=== PATIENT | female | born 1985 | race Caucasian/White ===

== ENCOUNTER 2017-06-21 16:00 | Emergency (ER) | payer OTHER ==
[~2017-06-21] VITALS: Ht 160 cm; Wt 95.6 kg
[~2017-06-21 16:00] MED LIST: LORA-741 PO; MTR800 PO; SERT50TA PO
[2017-06-21 16:14] VITALS: TEMP 37; Ht 160 cm; Wt 95.6 kg
--- NOTE | 2017-06-21 18:23 | DIAGNOSTIC IMAGING REPORT ---
CT OF THE ABDOMEN AND PELVIS WITHOUT CONTRAST, STONE PROTOCOL CLINICAL HISTORY: Right sided abdominal pain. COMPARISON STUDY: CT of the abdomen and pelvis September 11, 2011. TECHNIQUE: Helical axial images of the abdomen and pelvis were obtained without IV or oral contrast according to renal stone protocol. A dose lowering technique was utilized adhering to the principles of ALARA. FINDINGS: Lung bases are clear. No renal, ureteral or bladder calculi are present. There is no hydronephrosis. There is no biliary ductal dilatation status post cholecystectomy. Evaluation of the remainder of the abdomen and pelvis is suboptimal on this unenhanced exam. The liver, spleen, adrenal glands and pancreas are normal. There is no evidence for a bowel obstruction. The appendix is normal. There is no free fluid. No pneumatosis, free air or portal venous gas is present. A tampon is in place. There are no suspicious osseous lesions. Prominent left inguinal lymph nodes are unchanged. IMPRESSION: 1. No urinary calculi or hydronephrosis. 2. No acute process within the abdomen or pelvis on unenhanced exam. Normal appendix. Electronically signed by: Ivan Coe M.D. 06/21/2017 6:22 PM Dictated Date/Time: 06/21/2017 6:16 PM
[2017-06-21] MEDS ORDERED: IBUP-1050 PO (18:29)
[2017-06-21] MEDS ORDERED: ACET-1256 PO (18:30)
[2017-06-21] MEDS ORDERED: OXYC-57 PO (18:30)
[2017-06-21 18:43] LABS: ALT/SGPT 23 U/L (12-78); AST/SGOT 9 U/L (15-37); BLOOD UREA NITROGEN 14 mg/dl (7-18); BUN/CREATININE RATIO 23.3 (10-20); CALCIUM 8.8 mg/dl (8.5-10.1); CARBON DIOXIDE 30 mmol/L (21-32); CHLORIDE 104 mmol/L (98-107); CREATININE 0.61 mg/dl (0.60-1.20); GLUCOSE 86 mg/dl (70-99); POTASSIUM 3.4 mmol/L (3.5-5.1); SODIUM 139 mmol/L (136-145)
[2017-06-21 18:46] LABS: ALKALINE PHOSPHATASE 74 U/L (45-117)
[2017-06-21 18:51] LABS: URINE APPEARANCE CLEAR (CLEAR); URINE BILIRUBIN NEG (NEG); URINE COLOR DK YELLOW; URINE NITRITE NEG (NEG); URINE PH 5.5 (4.5-7.5); URINE SPECIFIC GRAVITY 1.034 (1.000-1.030); UROBILINOGEN NEG (NEG)
[2017-06-21 18:55] LABS: MANUAL MICROSCOPIC REQUIRED? NO; REVIEW REQ? YES
[2017-06-21 18:56] LABS: BASO % 0.3 %; BASO ABS # 0.03 K/uL (0-0.2); COMPLETE YES; EOS % 2.1 %; HEMATOCRIT 36.6 % (37-47); IG% 0.5 %; LYMPH % 19.5 %; LYMPH ABS # 2.21 K/uL (1.2-3.4); MEAN CORPUSCULAR HEMOGLOBIN 26.5 pg (25-34); MEAN PLATELET VOLUME 8.9 fL (7.4-10.4); MONO % 7.3 %; NEUT % 70.3 %; PLATELET COUNT 395 K/uL (130-400); RED BLOOD COUNT 4.41 M/uL (4.2-5.4); WHITE BLOOD COUNT 11.34 K/uL (4.8-10.8)
[2017-06-21 19:07] LABS: URINE MUCUS PRESENT (NONE PRSENT)
[2017-06-21] MEDS ORDERED: KETOROLAC TROMETHAMINE 30 MG/ML VIAL IV STA (19:16)
--- NOTE | 2017-06-21 19:51 | DIAGNOSTIC IMAGING REPORT ---
R RIBS UNILATERAL WITH PA CHEST CLINICAL HISTORY: Right lateral rib pain. COMPARISON STUDY: Chest radiograph July 06, 2009. FINDINGS: There is no pneumothorax or pleural effusion. The lungs are clear. Pulmonary vascularity is normal. Cardiomediastinal silhouette is normal. No acute right rib fractures are identified. There are cholecystectomy clips. IMPRESSION: No pneumothorax. No acute right rib fractures. Electronically signed by: Ivan Coe M.D. 06/21/2017 7:50 PM Dictated Date/Time: 06/21/2017 7:46 PM
[2017-06-21 20:50] VITALS: BP 107/70; PULSE 80; O2SAT 99
--- NOTE | 2017-06-21 22:39 | EMERGENCY ROOM VISIT NOTE ---
History Report prepared by Reta: Rachel Johnston Under the Supervision of: Dr. Blake Arreola M.D. First contact with patient: 17:33 Chief Complaint: ABDOMINAL PAIN Stated Complaint: PAIN IN RIGHT ABDOMEN Nursing Triage Summary: Right sided abd pain, nausea. Has been going on for a few weeks, worse today. History of Present Illness The patient is a 32 year old female who presents to the Emergency Room with complaints of constant sharp right sided abdominal pain beginning 3-4 weeks ago. The patient notes that the pain sometimes radiates to her back. She denies any fever, vomiting, difficulty urinating, blood in urine, or abnormal vaginal discharge. She notes some changes in her stool but denies any blood in her stool. She said her stool was small in caliber. The patient states that when her pain gets sharp she has difficulty breathing but otherwise denies shortness of breath. She notes some leg swelling which is baseline for her dues to her history of knee surgeries. The patient presently has her period and she reports it is 10 days late. She has a history of a cholecystectomy. Source of History: patient Onset: 3-4 weeks ago Position: abdomen Quality: sharp Timing: constant Associated Symptoms: + back pain, No fevers, No vomiting, No urinary symptoms Review of Systems See HPI for pertinent positives & negatives. A total of 10 systems reviewed and were otherwise negative. Past Medical & Surgical Medical Problems: (1) PUERPERAL ENDOMETRITIS CONDITION OR COMPLICATION Surgical Problems: (1) History of delivery (2) History of sinus surgery (3) History of tubal ligation Family History no pertinent family history stated Social History Smoking Status: Former Smoker Alcohol Use: none Drug Use: none Marital Status: Housing Status: lives with family Occupation Status: employed Current/Historical Medications Scheduled Sertraline (Zoloft), 50 MG PO HS Scheduled PRN Acetaminophen (Tylenol), 1,000 MG PO Q6 PRN for Pain Ibuprofen (Advil), 400 MG PO Q6 PRN for Pain Lorazepam (Ativan), 0.5 MG PO for Anxiety Oxycodone/Acetaminophen 5MG/325MG (Percocet 5MG/325MG), 1-2 TABLETS PO Q4H PRN for Pain Allergies Coded Allergies: Fish Allergy (Verified Allergy, Unknown, "SEAFOOD" = RASH, 11/12/12) SHELLFISH (Verified Allergy, Unknown, "SEAFOOD" = RASH, 11/12/12) Physical Exam Vital Signs Date Time Temp Pulse Resp B/P (MAP) Pulse Ox O2 Delivery O2 Flow Rate FiO2 06/21/17 20:50 80 16 107/70 99 06/21/17 20:05 75 16 114/68 98 Room Air 06/21/17 19:05 73 16 118/74 100 Room Air 06/21/17 17:53 81 16 112/79 99 Room Air 06/21/17 16:14 37.0 104 18 132/85 97 Room Air Physical Exam Constitutional: Vital signs reviewed. Eyes: Pupils are equal round reactive to light. Conjunctiva are noninjected. ENT: Pharynx is clear without erythema or exudate. Mucous membranes are moist. Neck supple without meningeal signs. Respiratory: Clear to auscultation bilaterally. Breath sounds are equal bilaterally. Cardiovascular: Regular rate and rhythm. No rubs or gallops. GI: Soft and nondistended. Right upper and lower abdominal tenderness, no guarding. Bowel sounds are present. Musculoskeletal: No peripheral edema. No lower extremity tenderness. Right CVA tenderness, although the patient does have diffuse tenderness to her right lower ribs. Integumentary: No cyanosis. Neurological: The patient is awake and alert. No focal deficits. Psychiatric: Normal affect. Medical Decision & Procedures ER Provider Diagnostic Interpretation: Radiology results as stated below per my review and the radiologist's interpretation: CT OF THE ABDOMEN AND PELVIS WITHOUT CONTRAST, STONE PROTOCOL FINDINGS: Lung bases are clear. No renal, ureteral or bladder calculi are present. There is no hydronephrosis. There is no biliary ductal dilatation status post cholecystectomy. Evaluation of the remainder of the abdomen and pelvis is suboptimal on this unenhanced exam. The liver, spleen, adrenal glands and pancreas are normal. There is no evidence for a bowel obstruction. The appendix is normal. There is no free fluid. No pneumatosis, free air or portal venous gas is present. A tampon is in place. There are no suspicious osseous lesions. Prominent left inguinal lymph nodes are unchanged. IMPRESSION: 1. No urinary calculi or hydronephrosis. 2. No acute process within the abdomen or pelvis on unenhanced exam. Normal appendix. Electronically signed by: Lorraine Ozuna RIBS UNILATERAL WITH PA CHEST FINDINGS: There is no pneumothorax or pleural effusion. The lungs are clear. Pulmonary vascularity is normal. Cardiomediastinal silhouette is normal. No acute right rib fractures are identified. There are cholecystectomy clips. IMPRESSION: No pneumothorax. No acute right rib fractures. Electronically signed by: Ivan Coe M.D. Laboratory Results 06/21/17 17:45 Red Blood Count 4.41, Mean Corpuscular Volume 83.0, Mean Corpuscular Hemoglobin 26.5, Mean Corpuscular Hemoglobin Concent 32.0, Mean Platelet Volume 8.9, Neutrophils (%) (Auto) 70.3, Lymphocytes (%) (Auto) 19.5, Monocytes (%) (Auto) 7.3, Eosinophils (%) (Auto) 2.1, Basophils (%) (Auto) 0.3, Neutrophils # (Auto) 7.97, Lymphocytes # (Auto) 2.21, Monocytes # (Auto) 0.83, Eosinophils # (Auto) 0.24, Basophils # (Auto) 0.03 06/21/17 17:45 Test 06/21/17 17:45 White Blood Count 11.34 K/uL (4.8-10.8) Red Blood Count 4.41 M/uL (4.2-5.4) Hemoglobin 11.7 g/dL (12.0-16.0) Hematocrit 36.6 % (37-47) Mean Corpuscular Volume 83.0 fL (80-100) Mean Corpuscular Hemoglobin 26.5 pg (25-34) Mean Corpuscular Hemoglobin Concent 32.0 g/dl (32-36) Platelet Count 395 K/uL (130-400) Mean Platelet Volume 8.9 fL (7.4-10.4) Neutrophils (%) (Auto) 70.3 % Lymphocytes (%) (Auto) 19.5 % Monocytes (%) (Auto) 7.3 % Eosinophils (%) (Auto) 2.1 % Basophils (%) (Auto) 0.3 % Neutrophils # (Auto) 7.97 K/uL (1.4-6.5) Lymphocytes # (Auto) 2.21 K/uL (1.2-3.4) Monocytes # (Auto) 0.83 K/uL (0.11-0.59) Eosinophils # (Auto) 0.24 K/uL (0-0.5) Basophils # (Auto) 0.03 K/uL (0-0.2) RDW Standard Deviation 43.1 fL (36.4-46.3) RDW Coefficient of Variation 14.3 % (11.5-14.5) Immature Granulocyte % (Auto) 0.5 % Immature Granulocyte # (Auto) 0.06 K/uL (0.00-0.02) D-Dimer 330 ug/L FEU (0-500) Urine Color DK YELLOW Urine Appearance CLEAR (CLEAR) Urine pH 5.5 (4.5-7.5) Urine Specific [place] 1.034 (1.000-1.030) Urine Protein NEG (NEG) Urine Glucose (UA) NEG (NEG) Urine Ketones NEG (NEG) Urine Occult Blood TRACE (NEG) Urine Nitrite NEG (NEG) Urine Bilirubin NEG (NEG) Urine Urobilinogen NEG (NEG) Urine Leukocyte Esterase NEG (NEG) Urine WBC (Auto) 1-5 /hpf (0-5) Urine RBC (Auto) 0-4 /hpf (0-4) Urine Hyaline Casts (Auto) 1-5 /lpf (0-5) Urine Epithelial Cells (Auto) 10-20 /lpf (0-5) Urine Bacteria (Auto) NEG (NEG) Urine Crystals CALCIUM OXALATE (NONE Urine Mucus PRESENT (NONE PRSENT) Urine Test NEG (NEG) Anion Gap 5.0 mmol/L (3-11) Est Creatinine Clear Calc Drug Dose 144.3 ml/min Estimated GFR () 138.1 Estimated GFR (Non- 119.1 BUN/Creatinine Ratio 23.3 (10-20) Calcium Level 8.8 mg/dl (8.5-10.1) Total Bilirubin 0.2 mg/dl (0.2-1) Direct Bilirubin < 0.1 mg/dl (0-0.2) Aspartate Amino Transf (AST/SGOT) 9 U/L (15-37) Alanine Aminotransferase (ALT/SGPT) 23 U/L (12-78) Alkaline Phosphatase 74 U/L (45-117) Total Protein 8.1 gm/dl (6.4-8.2) Albumin 4.0 gm/dl (3.4-5.0) Lipase 89 U/L (73-393) Laboratory results as reviewed by me. Medications Administered Medications (Trade) Dose Ordered Sig/Mehreen Route Start Time Stop Time Status Last Admin Dose Admin Ketorolac Tromethamine (Toradol Inj) 30 mg NOW STAT IV 06/21/17 19:16 06/21/17 19:17 DC 06/21/17 19:25 30 MG ED Course 1734: The patient was evaluated in room A4B. A complete history and physical exam was performed. 1912: I discussed the patient's test results with her. On reamination, the patient has significant tenderness of right lower ribs. 1915: Toradol Inj 30 mg IV. 2029: I discussed the patient's test results with her. She has slight improvement of pain with the Toradol. 2044: Upon reevaluation, the patient appeared to have improvement of her symptoms. I discussed tonight's findings with the patient. She verbalized agreement of the treatment plan. The patient was discharged home. Medical Decision This is a 32-year-old female presents with right-sided abdominal and flank pain. Differential diagnosis includes kidney stone, pleurisy, UTI, pyelonephritis, pancreatitis, appendicitis. I did perform a limited focused review of portions of the patient's old chart on the electronic medical record. The patient has had no recent pertinent visits to this hospital. I did evaluate the patient as noted above. Patient is presenting with right sided flank pain. On examination, however, she does have tenderness in both the right upper abdomen as well as the right lower abdomen. She also has CVA tenderness but she does have diffuse tenderness to her right lower ribs and so I 'm not convinced that this is from a urinary tract infection or pyelonephritis. She denies any chest pain or shortness of breath to suggest pulmonary embolism. IV access was established. I did treat patient with Toradol IV. I did order and personally review the patient's rib and chest x-ray as described above. There is no evidence of acute pathology. Urine analysis did not show signs of infection although there is evidence of calcium oxylate crystals and blood. A urine culture was sent. I did order and review the patient's blood work as noted in the electronic medical record. Her white blood cell count is slightly elevated. D-dimer is negative. I did order a CT of the abdomen and pelvis. I did review the images myself as well as the radiology report as described above. There is no evidence of acute pathology. I did discuss the test results with the patient. At this time the cause of her symptoms is unclear and so I did recommend close follow up with her physician for further evaluation. I did review return instructions with her and she was discharged in good condition. Medication Reconcilliation Current Medication List: was personally reviewed by me Blood Pressure Screening Patient's blood pressure: Elevated blood pressure Blood pressure disposition: Referred to PCP Impression Primary Impression: Right flank pain Additional Impression: Right sided abdominal pain Scribe Attestation The scribe's documentation has been prepared under my direct and personally reviewed by me in its entirety. I confirm that the note above accurately reflects all work, treatment, procedures, and medical decision making performed by me. Departure Information Dispostion Home / Self-Care Referrals No Doctor, Assigned (PCP) Forms Call Back Authorization, HOME CARE DOCUMENTATION FORM, IMPORTANT VISIT INFORMATION Patient Instructions ED Abdominal Pain Unkn Cause, ED Flank Pain Uncertain Cause, My [facility] Additional Instructions You have been examined and treated today on an emergency basis only. This is not a substitute for, or an effort to provide, complete comprehensive medical care. It is impossible to recognize and treat all injuries or illnesses in a single emergency department visit. It is therefore important that you follow up closely with your physician. Call as soon as possible for an appointment. Return for worsening symptoms or if you develop fever, vomiting, chest pain, trouble breathing or any other concerning symptoms. Problem Qualifiers
== END 2017-06-21 20:51 | disposition home or self-care (01) ==
LOC: C.EDB 16:01 → C.EDA 20:51
DX: R10.31 Right lower quadrant pain (principal); R10.11 Right upper quadrant pain; Z98.51 Tubal ligation status; Z87.891 Personal history of nicotine dependence

== ENCOUNTER → 2017-11-25 | Outpatient (CLI) | payer OTHER ==
[~2017-11-25] MED LIST changes: +ACET-1256 PO; +IBUP-1050 PO; -MTR800 PO; +OXYC-57 PO; +OXYC1TAB3 PO
[2017-11-25 17:31] LABS: BASO % 0.3 %; BASO ABS # 0.03 K/uL (0-0.2); EOS % 1.2 %; EOS ABS # 0.12 K/uL (0-0.5); HEMATOCRIT 36.5 % (37-47); HEMOGLOBIN 11.7 g/dL (12.0-16.0); IG# 0.03 K/uL (0.00-0.02); LYMPH % 19.9 %; LYMPH ABS # 2.06 K/uL (1.2-3.4); MEAN CELL VOLUME 83.1 fL (80-100); MEAN CORPUSCULAR HEMOGLOBIN 26.7 pg (25-34); MEAN CORPUSCULAR HGB CONC 32.1 g/dl (32-36); MEAN PLATELET VOLUME 9.1 fL (7.4-10.4); MONO % 4.9 %; MONO ABS # 0.51 K/uL (0.11-0.59); NEUT % 73.4 %; NEUT ABS # 7.61 K/uL (1.4-6.5); PLATELET COUNT 358 K/uL (130-400); RED CELL DISTRIBUTION WIDTH CV 14.9 % (11.5-14.5); RED CELL DISTRIBUTION WIDTH SD 45.6 fL (36.4-46.3); WHITE BLOOD COUNT 10.36 K/uL (4.8-10.8)
== END | disposition home or self-care (01) ==
LOC: C.LAB1850 16:42
PROVIDERS: ATTEND Obstetrics & Gynecology
DX: N92.6 Irregular menstruation, unspecified (principal)

== ENCOUNTER → 2017-11-25 | Outpatient (CLI) | payer OTHER | END | disposition home or self-care (01) | LOC: C.PAPS 18:21 | PROVIDERS: ATTEND Obstetrics & Gynecology | DX: Z01.419 Encounter for gynecological examination (general) (routine) without abnormal findings (principal) ==

== ENCOUNTER 2017-11-27 18:45 | Emergency (ER) | payer OTHER ==
[~2017-11-27 18:45] MED LIST changes: -OXYC1TAB3 PO
[2017-11-27] MEDS ORDERED: KETOROLAC TROMETHAMINE 30 MG/ML VIAL ONE (20:27)
[2017-11-27] MEDS ORDERED: ONDANSETRON HOME PACK 4MG OD TAB PO ONE (22:45)
[2017-11-27] MEDS ORDERED: OXYCODONE IR HOME PACK PO ONE (22:45)
[2017-11-27 22:59] LABS: BLOOD UREA NITROGEN 15 mg/dl (7-18); CREATININE 0.55 mg/dl (0.60-1.20); GLUCOSE 79 mg/dl (70-99); HEMATOCRIT 34.4 % (37-47); HEMOGLOBIN 11.3 g/dL (12.0-16.0); MEAN CELL VOLUME 81.9 fL (80-100); MEAN CORPUSCULAR HEMOGLOBIN 26.9 pg (25-34); MEAN CORPUSCULAR HGB CONC 32.8 g/dl (32-36); MEAN PLATELET VOLUME 8.8 fL (7.4-10.4); PLATELET COUNT 328 K/uL (130-400); RED CELL DISTRIBUTION WIDTH CV 15.2 % (11.5-14.5); RED CELL DISTRIBUTION WIDTH SD 45.6 fL (36.4-46.3); WHITE BLOOD COUNT 10.16 K/uL (4.8-10.8)
[2017-11-27 23:00] LABS: CALCIUM 9.1 mg/dl (8.5-10.1); CARBON DIOXIDE 27 mmol/L (21-32); POTASSIUM 3.7 mmol/L (3.5-5.1); SODIUM 138 mmol/L (136-145)
[2017-11-27 23:01] VITALS: BP 116/71; PULSE 79; O2SAT 96
[2017-11-27 23:04] LABS: INR 0.9 (0.9-1.1); PTT PATIENT 26.4 SECONDS (21.0-31.0)
--- NOTE | 2017-11-27 23:08 | EMERGENCY ROOM VISIT NOTE ---
History Report prepared by Reta: Eddie Benedict Under the Supervision of: Dr. Santo Rosado D.O. Chief Complaint: ED VAG BLEEDING Stated Complaint: R LOWER PELVIC PAIN AND BLEEDING History of Present Illness The patient is a year 32 old female who presents to the Emergency Room with complaints persistent vaginal bleeding since this afternoon. She notes cramping for one week. Her LNMP was September 21, 2017. She has a history of tubal ligation. She denies any chance of . She has a history of two pregnancies. She notes that she was lifting heavy boxes at work when she began bleeding vaginally. She notes the more boxes she lifted, the more she bled. She notes that she is bleeding mildly. She is not currently taking any form of control. She notes that she has been seeing her OBGYN and was seen yesterday. She had a transvaginal US, though she has not been given the results. She has been taking Ibuprofen. She last took Ibuprofen at 1400 today. She takes daily vitamins and Zolft. She has a history of cholecystectomy. She is a current smoker. Source of History: patient Onset: since this afternoon Position: other (vaginal) Quality: other (bleeding) Timing: other (persistent) Review of Systems See HPI for pertinent positives & negatives. A total of 10 systems reviewed and were otherwise negative. Past Medical & Surgical Medical Problems: (1) PUERPERAL ENDOMETRITIS CONDITION OR COMPLICATION Surgical Problems: (1) History of delivery (2) History of sinus surgery (3) History of tubal ligation Family History Heart disease Social History Smoking Status: Former Smoker Alcohol Use: none Drug Use: none Marital Status: Housing Status: lives with family Occupation Status: employed Current/Historical Medications Scheduled Sertraline (Zoloft), 50 MG PO HS Scheduled PRN Acetaminophen (Tylenol), 1,000 MG PO Q6 PRN for Pain Ibuprofen (Advil), 400 MG PO Q6 PRN for Pain Lorazepam (Ativan), 0.5 MG PO for Anxiety Oxycodone/Acetaminophen 5MG/325MG (Percocet 5MG/325MG), 1-2 TABLETS PO Q4H PRN for Pain Allergies Coded Allergies: Fish Allergy (Verified Allergy, Unknown, "SEAFOOD" = RASH, 11/12/12) SHELLFISH (Verified Allergy, Unknown, "SEAFOOD" = RASH, 11/12/12) Physical Exam Vital Signs Date Time Temp Pulse Resp B/P (MAP) Pulse Ox O2 Delivery O2 Flow Rate FiO2 11/27/17 23:01 79 16 116/71 96 Physical Exam GENERAL: Patient is awake, alert, and in no acute distress. Patient is resting comfortably and showing no signs of anxiety EYES: The conjunctivae are clear. The pupils are round and reactive. EARS, NOSE, MOUTH AND THROAT: The nose is without any evidence of any deformity. Mucous membranes are moist tongue is midline NECK: The neck is nontender and supple. RESPIRATORY: Normal respiratory effort is noted there is no evidence of wheezing rhonchi or rales CARDIOVASCULAR: Regular rate and rhythm noted there no murmurs rubs or gallops normal S1 normal S2 GASTROINTESTINAL: Mildly distended with suprapubic and right suprapubic tenderness to palpation, no guarding or rigidity. MUSCULOSKELETAL/EXTREMITIES: There is no evidence of gross deformity full range of motion is noted in the hips and shoulders SKIN: There is no obvious evidence of any rash. There are no petechiae, pallor or cyanosis noted. NEUROLOGIC: Patient is awake alert and oriented x3. Medical Decision & Procedures ER Provider Diagnostic Interpretation: Radiology results as stated below per my review and interpretation: Transvaginal US: Right ovarian hemorrhagic cyst. No free fluid. PELVIC COMPLETE NON OB CLINICAL HISTORY: RLQ PAIN PAIN COMPARISON STUDY: 12/10/2010 FINDINGS: The uterus measured 10 cm. The endometrial stripe measured 7 mm. The right ovary measured 3.7 cm maximum dimension with normal vascular flow. 3 cm complex and/or hemorrhagic cyst.. The left ovary measured 3.6 cm maximum dimension with normal vascular flow. There is no ultrasonographic evidence of ovarian torsion. It should be noted that ovarian torsion can be present with normal Doppler ultrasonographic findings. There was no evidence of pathologic free pelvic fluid. IMPRESSION: 3.1 cm complex and/or hemorrhagic cyst right ovary. The above report was generated using voice recognition software. It may contain grammatical, syntax or spelling errors. Electronically signed by: Aaron Yao M.D. 11/28/2017 6:55 AM Laboratory Results 11/27/17 00:00 11/27/17 00:00 Test 11/27/17 00:00 Red Blood Count 4.20 M/uL (4.2-5.4) Mean Corpuscular Volume 81.9 fL (80-100) Mean Corpuscular Hemoglobin 26.9 pg (25-34) Mean Corpuscular Hemoglobin Concent 32.8 g/dl (32-36) RDW Standard Deviation 45.6 fL (36.4-46.3) RDW Coefficient of Variation 15.2 % (11.5-14.5) Mean Platelet Volume 8.8 fL (7.4-10.4) Prothrombin Time 9.7 SECONDS (9.0-12.0) Prothromb Time International Ratio 0.9 (0.9-1.1) Activated Partial Thromboplast Time 26.4 SECONDS (21.0-31.0) Partial Thromboplastin Ratio 1.0 Urine Color YELLOW Urine Appearance CLEAR (CLEAR) Urine pH 5.5 (4.5-7.5) Urine Specific [place] 1.033 (1.000-1.030) Urine Protein NEG (NEG) Urine Glucose (UA) NEG (NEG) Urine Ketones TRACE (NEG) Urine Occult Blood TRACE (NEG) Urine Nitrite NEG (NEG) Urine Bilirubin NEG (NEG) Urine Urobilinogen NEG (NEG) Urine Leukocyte Esterase NEG (NEG) Urine WBC (Auto) 0 /hpf (0-5) Urine RBC (Auto) 0-4 /hpf (0-4) Urine Hyaline Casts (Auto) 1-5 /lpf (0-5) Urine Epithelial Cells (Auto) 10-20 /lpf (0-5) Urine Bacteria (Auto) NEG (NEG) Anion Gap 6.0 mmol/L (3-11) Estimated GFR () 142.8 Estimated GFR (Non- 123.2 BUN/Creatinine Ratio 27.2 (10-20) Calcium Level 9.1 mg/dl (8.5-10.1) Human Chorionic Gonadotropin, Qual NEG (NEG) Laboratory results per my review. Medications Administered Medications (Trade) Dose Ordered Sig/Mehreen Route Start Time Stop Time Status Last Admin Dose Admin Ondansetron HCl (ZOFRAN ODT 4MG Home Pack) 1 homepack UD ONCE PO 11/27/17 22:45 11/27/17 22:46 DC 11/27/17 22:55 1 HOMEPACK Oxycodone HCl (Roxicodone Immediate Rel 5MG Home Pack) 1 homepack UD ONCE PO 11/27/17 22:45 11/27/17 22:46 DC 11/27/17 22:55 1 [facility] ED Course 1939: The patient was evaluated in room B10. A complete history and physical examination were performed. 2224: I spoke with RICARDO Bolivar. We discussed the patients case. The office will follow up with the patient. 2229: I reassessed the patient at this time. She is feeling better and resting comfortably. I discussed the results and treatment plan with the patient. I answered all pertaining questions that she had. She expressed understanding and verbalized agreement. The patient will be discharged home. Medical Decision Prior records/ancillary studies reviewed. Triage Nursing notes reviewed. The patient's history was concerning for vaginal bleeding and abdominal pain. Differential diagnosis: Etiologies such as ectopic , dysfunction uterine bleeding, bleeding dyscrasia, trauma, infection, as well as others were entertained. The patient is a 32-year-old female who presented to the emergency department for abnormal. As well as right-sided abdominal pain. The patient did not have a physical exam consistent with acute surgical abdomen. I discussed patient's laboratory and radiographic studies with her. Her vitals were stable. The patient was found to have a right-sided ovarian cyst which appears to be hemorrhagic. I discussed the patient's laboratory and radiographic studies with her. I discussed that hemorrhagic cyst could be complicated and rupture. I encouraged her follow-up with the [employer] physician. I discussed her case with the [employer] physician. She was encouraged to return to the emergency department immediately if symptoms change worsen or the need arises. Medication Reconcilliation Current Medication List: was personally reviewed by me Consults Time Called: 2209 Consulting Physician: RICARDO Bolivar Returned Call: 2224 I spoke with RICARDO Bolivar. We discussed the patients case. The office will follow up with the patient. Impression Primary Impression: Vaginal bleeding Additional Impression: Ovarian cyst Scribe Attestation The scribe's documentation has been prepared under my direction and personally reviewed by me in its entirety. I confirm that the note above accurately reflects all work, treatment, procedures, and medical decision making performed by me. Departure Information Dispostion Home / Self-Care Referrals Kiara Quiles D.O. Forms Work Instructions Return To Work: 2 days Patient Instructions Cysts Ovarian, ED Bleed Irregular Vaginal Additional Instructions Continue all medications as prescribed. Continue to use Motrin and Tylenol as directed for pain. Call the [employer] physician in the morning to schedule a follow-up appointment. Return to the emergency department immediately if symptoms change worsen or the need arises. Work Instructions Return To Work: 2 days Problem Qualifiers Additional Impression: Ovarian cyst Laterality: right Qualified Codes: N83.201 - Unspecified ovarian cyst, right side
--- NOTE | 2017-11-28 06:57 | DIAGNOSTIC IMAGING REPORT ---
PELVIC COMPLETE NON OB CLINICAL HISTORY: RLQ PAIN PAIN COMPARISON STUDY: 12/10/2010 FINDINGS: The uterus measured 10 cm. The endometrial stripe measured 7 mm. The right ovary measured 3.7 cm maximum dimension with normal vascular flow. 3 cm complex and/or hemorrhagic cyst.. The left ovary measured 3.6 cm maximum dimension with normal vascular flow. There is no ultrasonographic evidence of ovarian torsion. It should be noted that ovarian torsion can be present with normal Doppler ultrasonographic findings. There was no evidence of pathologic free pelvic fluid. IMPRESSION: 3.1 cm complex and/or hemorrhagic cyst right ovary. The above report was generated using voice recognition software. It may contain grammatical, syntax or spelling errors. Electronically signed by: Aaron Yao M.D. 11/28/2017 6:55 AM Dictated Date/Time: 11/28/2017 6:54 AM
[2017-11-28] MEDS ORDERED: OXYC1TAB3 PO (19:46)
== END 2017-11-27 23:02 | disposition home or self-care (01) ==
LOC: C.EDB 18:45
DX: N93.9 Abnormal uterine and vaginal bleeding, unspecified (principal); N83.201 Unspecified ovarian cyst, right side; Z79.899 Other long term (current) drug therapy; Z91.013 Allergy to seafood; Z82.49 Family history of ischemic heart disease and other diseases of the circulatory system; F17.200 Nicotine dependence, unspecified, uncomplicated

== ENCOUNTER 2017-11-28 16:22 | Emergency (ER) | payer OTHER ==
[~2017-11-28] VITALS: Ht 162.6 cm; Wt 98.9 kg
[2017-11-28 16:24] VITALS: Ht 162.6 cm; Wt 98.9 kg
[2017-11-28] MEDS ORDERED: ACETAMINOPHEN IV 100 ML IV STA (16:41)
[2017-11-28 17:29] LABS: BASO % 0.2 %; BASO ABS # 0.02 K/uL (0-0.2); EOS % 2.4 %; HEMATOCRIT 36.8 % (37-47); HEMOGLOBIN 11.6 g/dL (12.0-16.0); IG# 0.02 K/uL (0.00-0.02); LYMPH ABS # 1.81 K/uL (1.2-3.4); MEAN CELL VOLUME 83.4 fL (80-100); MEAN CORPUSCULAR HEMOGLOBIN 26.3 pg (25-34); MEAN CORPUSCULAR HGB CONC 31.5 g/dl (32-36); MEAN PLATELET VOLUME 8.8 fL (7.4-10.4); MONO % 6.2 %; MONO ABS # 0.51 K/uL (0.11-0.59); NEUT ABS # 5.68 K/uL (1.4-6.5); PLATELET COUNT 328 K/uL (130-400); RED CELL DISTRIBUTION WIDTH CV 14.9 % (11.5-14.5); RED CELL DISTRIBUTION WIDTH SD 45.9 fL (36.4-46.3); WHITE BLOOD COUNT 8.24 K/uL (4.8-10.8)
[2017-11-28 17:41] LABS: CALCIUM 8.8 mg/dl (8.5-10.1); CREATININE 0.64 mg/dl (0.60-1.20); POTASSIUM 3.6 mmol/L (3.5-5.1)
--- NOTE | 2017-11-28 19:16 | DIAGNOSTIC IMAGING REPORT ---
PELVIC COMPLETE NON OB CLINICAL HISTORY: 32 years-old Female presenting with RLQ pain, bleeding, last menstrual period 09/21/2017, follow-up right ovarian cyst. TECHNIQUE: Real-time grayscale and color and spectral Doppler ultrasound imaging of the pelvis was performed using a transabdominal probe. COMPARISON: 11/27/2017. FINDINGS: Uterus: Normal. Anteverted retroflexed. The uterus measures 9.7 x 4.6 x 6.4 cm. Endometrial stripe measures 4 mm in thickness. Endometrium normal-appearing. Cervix normal. Right adnexa: Right ovary enlarged by the hemorrhagic cyst. Right ovary measures 5.2 x 3.3 x 4.4 cm. Normal color Doppler flow and arterial and venous waveforms within the ovarian parenchyma. Well-defined hypoechoic lesion in the right ovary with lacelike internal echoes consistent with a hemorrhagic cyst. This measures 2.9 x 2.5 x 2.3 cm. Left adnexa: Left ovary not visualized. Other: No free fluid. IMPRESSION: Suspected right hemorrhagic ovarian cyst. No evidence of right ovarian torsion. Electronically signed by: Jeremie Castro M.D. 11/28/2017 7:15 PM Dictated Date/Time: 11/28/2017 7:12 PM
[2017-11-28] MEDS ORDERED: OXYC1TAB3 PO (19:46)
--- NOTE | 2017-11-28 19:48 | EMERGENCY ROOM VISIT NOTE ---
History First contact with patient: 16:29 Chief Complaint: PELVIC PAIN Stated Complaint: R PELVIC PAIN-CYST/BLEEDING History of Present Illness The patient is a 32 year old female who presents to the Emergency Room with complaints of right lower quadrant abdominal pain with ongoing vaginal bleeding 1 week. The patient states the pain significantly worsened yesterday while lifting heavy boxes. After that time, she was seen here in the emergency department where she had labs and an ultrasound performed. Prior to that incident, the patient was seen by her focused factory manager for an office ultrasound which did show a hemorrhagic cyst. The workup here in the emergency department yesterday was consistent with this. Gynecology was contacted at that time, and the patient was advised to follow-up. She contacted the office today due to ongoing pain and bleeding, and because her symptoms had been going on for 1 week , she was encouraged to come to the emergency department for reevaluation at this time for repeat ultrasound and to ensure there have been no changes. The patient presents here to the emergency department complaining of ongoing right lower quadrant pelvic pain and vaginal bleeding which is improving. She states the pain is not improving despite one dose of oxycodone and 2 doses of ibuprofen. She has not taken any Tylenol. She states she feels that the bleeding may be related to her period, as the bleeding has started to lighten up. She states the pain is now radiating up towards the upper abdomen, but does seem to consistently initiate in the right lower quadrant. The patient states she does not have a gallbladder. She denies any recent illness or fever. She denies any hematuria, dysuria, or urinary frequency. She denies any flank pain. The patient denies any diarrhea or constipation. Review of Systems A complete 10 point review of systems was reviewed with the patient with pertinent positives and negatives as per history of present illness. All else were negative. Past Medical/Surgical History Medical Problems: (1) PUERPERAL ENDOMETRITIS CONDITION OR COMPLICATION Surgical Problems: (1) History of delivery (2) History of sinus surgery (3) History of tubal ligation Family History Heart disease Social History Smoking Status: Current Every Day Smoker Alcohol Use: none Drug Use: none Marital Status: Housing Status: lives with family Occupation Status: employed Current/Historical Medications Scheduled Sertraline (Zoloft), 50 MG PO HS Scheduled PRN Acetaminophen (Tylenol), 1,000 MG PO Q6 PRN for Pain Ibuprofen (Advil), 400 MG PO Q6 PRN for Pain Lorazepam (Ativan), 0.5 MG PO for Anxiety Oxycodone Immediate Rel Tab (Roxicodone Ir), 1 TAB PO QID PRN for stas Oxycodone/Acetaminophen 5MG/325MG (Percocet 5MG/325MG), 1-2 TABLETS PO Q4H PRN for Pain Physical Exam Vital Signs Date Time Temp Pulse Resp B/P (MAP) Pulse Ox O2 Delivery O2 Flow Rate FiO2 11/28/17 20:59 36.6 79 14 120/77 97 11/28/17 19:26 83 20 128/77 97 Room Air 11/28/17 19:26 79 14 120/77 97 Room Air 11/28/17 16:24 36.6 82 16 126/84 97 Room Air Physical Exam VITALS: Vitals are noted on the nurse's note and reviewed by myself. Vital signs stable. GENERAL: This is a 32-year-old white female, in no acute distress, nondiaphoretic, well-developed well-nourished. The patient appears to be comfortably sitting on the litter and interacts appropriately with examiner. SKIN: The skin was without rashes, erythema, edema, or bruising. There is no tenting of the skin. Capillary reflex less than 2 seconds. HEAD: Normocephalic atraumatic. EARS: External auditory canals clear, tympanic membranes pearly brewer without erythema or effusion bilaterally. EYES: Pupils equal round and reactive to light and accommodation. Conjunctivae without injection, sclerae without icterus. Extraocular movements intact. NOSE: Patent, turbinates without inflammation or discharge. No sinus tenderness. MOUTH: Mucous membranes moist. Tonsils are not enlarged. Pharynx without erythema or exudate. Uvula midline. Airway patent. Tongue does not deviate. NECK: Supple without nuchal rigidity. No lymphadenopathy. No thyromegaly. Cervical spine is nontender. No JVD. HEART: Regular rate and rhythm without murmurs gallops or rubs. LUNGS: Clear to auscultation bilaterally without wheezes, rales or rhonchi. No dullness to percussion. No retractions or accessory muscle use. ABDOMEN: Positive bowel sounds x 4. Normal tympanic percussion. Right upper quadrant/epigastric, right lower quadrant tenderness on palpation. The abdomen was otherwise soft, nontender, without masses or organomegaly. Rodrígeuz sign negative. No guarding or rebound tenderness. MUSCULOSKELETAL: No muscle atrophy, erythema, or edema noted. Full range of motion without joint tenderness in all extremities. No tenderness to palpation. Normal gait. Strength 5/5 throughout. NEURO: Patient was alert and oriented to person place and time. Normal sensation to light and sharp touch. Deep tendon reflexes 2+ throughout. No focal neurological deficits. Medical Decision & Procedures ER Provider Diagnostic Interpretation: PELVIC COMPLETE NON OB CLINICAL HISTORY: 32 years-old Female presenting with RLQ pain, bleeding, last menstrual period 09/21/2017, follow-up right ovarian cyst. TECHNIQUE: Real-time grayscale and color and spectral Doppler ultrasound imaging of the pelvis was performed using a transabdominal probe. COMPARISON: 11/27/2017. FINDINGS: Uterus: Normal. Anteverted retroflexed. The uterus measures 9.7 x 4.6 x 6.4 cm. Endometrial stripe measures 4 mm in thickness. Endometrium normal-appearing. Cervix normal. Right adnexa: Right ovary enlarged by the hemorrhagic cyst. Right ovary measures 5.2 x 3.3 x 4.4 cm. Normal color Doppler flow and arterial and venous waveforms within the ovarian parenchyma. Well-defined hypoechoic lesion in the right ovary with lacelike internal echoes consistent with a hemorrhagic cyst. This measures 2.9 x 2.5 x 2.3 cm. Left adnexa: Left ovary not visualized. Other: No free fluid. IMPRESSION: Suspected right hemorrhagic ovarian cyst. No evidence of right ovarian torsion. Electronically signed by: Jeremie Castro M.D. 11/28/2017 7:15 PM Dictated Date/Time: 11/28/2017 7:12 PM Laboratory Results 11/28/17 17:10 Red Blood Count 4.41, Mean Corpuscular Volume 83.4, Mean Corpuscular Hemoglobin 26.3, Mean Corpuscular Hemoglobin Concent 31.5, Mean Platelet Volume 8.8, Neutrophils (%) (Auto) 69.0, Lymphocytes (%) (Auto) 22.0, Monocytes (%) (Auto) 6.2, Eosinophils (%) (Auto) 2.4, Basophils (%) (Auto) 0.2, Neutrophils # (Auto) 5.68, Lymphocytes # (Auto) 1.81, Monocytes # (Auto) 0.51, Eosinophils # (Auto) 0.20, Basophils # (Auto) 0.02 11/28/17 17:10 Test 11/28/17 17:00 11/28/17 17:10 Urine Color YELLOW Urine Appearance CLOUDY (CLEAR) Urine pH 5.0 (4.5-7.5) Urine Specific [place] 1.030 (1.000-1.030) Urine Protein NEG (NEG) Urine Glucose (UA) NEG (NEG) Urine Ketones TRACE (NEG) Urine Occult Blood 3+ (NEG) Urine Nitrite NEG (NEG) Urine Bilirubin NEG (NEG) Urine Urobilinogen NEG (NEG) Urine Leukocyte Esterase TRACE (NEG) Urine WBC (Auto) 1-5 /hpf (0-5) Urine RBC (Auto) >30 /hpf (0-4) Urine Hyaline Casts (Auto) 1-5 /lpf (0-5) Urine Epithelial Cells (Auto) >30 /lpf (0-5) Urine Bacteria (Auto) NEG (NEG) Urine Yeast (Auto) (NONE PRSENT) Urine Test NEG (NEG) White Blood Count 8.24 K/uL (4.8-10.8) Red Blood Count 4.41 M/uL (4.2-5.4) Hemoglobin 11.6 g/dL (12.0-16.0) Hematocrit 36.8 % (37-47) Mean Corpuscular Volume 83.4 fL (80-100) Mean Corpuscular Hemoglobin 26.3 pg (25-34) Mean Corpuscular Hemoglobin Concent 31.5 g/dl (32-36) Platelet Count 328 K/uL (130-400) Mean Platelet Volume 8.8 fL (7.4-10.4) Neutrophils (%) (Auto) 69.0 % Lymphocytes (%) (Auto) 22.0 % Monocytes (%) (Auto) 6.2 % Eosinophils (%) (Auto) 2.4 % Basophils (%) (Auto) 0.2 % Neutrophils # (Auto) 5.68 K/uL (1.4-6.5) Lymphocytes # (Auto) 1.81 K/uL (1.2-3.4) Monocytes # (Auto) 0.51 K/uL (0.11-0.59) Eosinophils # (Auto) 0.20 K/uL (0-0.5) Basophils # (Auto) 0.02 K/uL (0-0.2) RDW Standard Deviation 45.9 fL (36.4-46.3) RDW Coefficient of Variation 14.9 % (11.5-14.5) Immature Granulocyte % (Auto) 0.2 % Immature Granulocyte # (Auto) 0.02 K/uL (0.00-0.02) Anion Gap 5.0 mmol/L (3-11) Est Creatinine Clear Calc Drug Dose 142.9 ml/min Estimated GFR () 135.9 Estimated GFR (Non- 117.2 BUN/Creatinine Ratio 26.7 (10-20) Calcium Level 8.8 mg/dl (8.5-10.1) Lipase 67 U/L (73-393) Medications Administered Medications (Trade) Dose Ordered Sig/Mehreen Route Start Time Stop Time Status Last Admin Dose Admin Acetaminophen 100 ml @ 400 mls/hr NOW STAT IV 11/28/17 16:41 11/28/17 16:55 DC 11/28/17 18:23 400 MLS/HR ED Course The patient was seen and evaluated as above. IV access obtained, labs drawn. Patient was given 1 g IV acetaminophen. Ultrasound performed. This was reviewed by radiologist and myself as above. I discussed the findings with the patient at bedside. She continues to experience pain. I did offer her Toradol multiple times, and she declines. I consulted with Kristin Candelaria PSYCH NURSE. I spoke with Dr. Cho, who recommended 600 mg ibuprofen every 6 hours for at least 4 doses. She states that after that time she is still experiencing pain to take the narcotics. She did recommend to contact the office after taking the medications over the weekend to see if her symptoms improve. She did recommend a follow-up appointment, but states it is not emergent. I discussed this with the patient. She was agreeable to the plan of care. The patient was frustrated with the recommendation by gynecology to come here to the emergency department. I encouraged the patient to follow-up with her focused factory manager regarding the reasoning. Discharge instructions reviewed, the patient was discharged home in good condition. Medical Decision This is a 32-year-old female patient presents to the emergency department for the second time in 24 hours complaining of right lower quadrant abdominal pain with vaginal bleeding. The patient does have a known right hemorrhagic cyst, and was told by her focused factory manager to come to the emergency department for repeat ultrasound and further evaluation to ensure her symptoms are not being caused by a more serious etiology. Ultrasound here today when compared with ultrasound performed yesterday reveals an apparently stable hemorrhagic cyst. Lab work is consistent with previous lab work which was performed. The patient is still slightly anemic with hemoglobin of 11.6 and hematocrit of 36.8. The patient states this is normal for her, and in fact these labs have improved since yesterday. PRP did not reveal any renal or electrolyte abnormalities. Lipase was performed due to the epigastric discomfort and was slightly low at 67. Urinalysis did show blood, red blood cells, epithelial cells, and leukocytes esterase. I suspect a contaminated specimen due to the vaginal bleeding. Urine test was negative. I suspect the patient's pain is related to the hemorrhagic cyst. The patient is not managing her pain with scheduled pain medications, and I discussed with her the importance of doing this. I did discuss with her the role of ibuprofen. The patient was encouraged to continue to follow-up with gynecology regarding this complaint. The patient was agreeable. Etiologies such as threatened AB, ectopic , dysfunction uterine bleeding, bleeding dyscrasia, trauma, ovarian cyst, appendicitis, cholecystitis , choledocholithiasis, hepatic etiology, pancreatitis, urinary tract infection, infection, as well as others were entertained. The chart was completed utilizing [employer] voice recognition software. Grammatical errors, random word insertions, pronoun errors, and incomplete sentences are an occasional consequence of this system due to software limitations, ambient noise, and hardware issues. Any formal questions or concerns about the content, text, or information contained within the body of this dictation should be directly addressed to the provider for clarification. Medication Reconcilliation Current Medication List: was personally reviewed by me Blood Pressure Screening Patient's blood pressure: Normal blood pressure Impression Primary Impression: Hemorrhagic ovarian cyst Departure Information Dispostion Home / Self-Care Condition GOOD Prescriptions Oxycodone Immediate Rel Tab (ROXICODONE IR) 5 Mg Tab 1 TAB PO QID Y for stas, #12 TAB Prov: Valentina Ivory PA-C 11/28/17 Referrals Keshia Gomez DO (PCP) Kiara Quiles D.O. Patient Instructions ED Cyst Ovarian, [facility] Additional Instructions You were seen in the emergency department today for right lower quadrant pelvic pain. You were diagnosed with a hemorrhagic ovarian cyst on the right. Ibuprofen(Motrin, Advil) may be used for fever or pain. Use 600mg every six hours as needed. Take with food. Avoid using more than 2400mg in a 24 hour period. Do not use 2400mg per day for more than three consecutive days without physician direction. Prolonged inappropriate use can lead to stomach upset or ulcers. As discussed, you should take this medication for at least 24 hours prior to initiating any narcotic medication. (AND/OR) Acetaminophen(Tylenol) may be used for fever or pain. Use 1000mg every six hours as needed. Avoid using more than 3000mg in a 24 hour period. Oxycodone (OxyIR) 5mg: Take 1 pills every 6 hours as needed for breakthrough pain. Avoid alcohol, operating machinery or dangerous equipment, working on ladders or roofs, DRIVING, or situations where being under the influence may be dangerous. It is recommended to use a stool softener such as Colace, 100mg twice daily while taking this medication to avoid constipation. Please continue to follow-up with your focused factory manager for ongoing management and care. Return immediately to the emergency department for any worsening symptoms, significant vaginal hemorrhage, soaking through one pad per hour, significantly worsening pain, or other concerning symptoms.
[2017-11-28 20:59] VITALS: BP 120/77; PULSE 79; TEMP 36.6; O2SAT 97
== END 2017-11-28 20:59 | disposition home or self-care (01) ==
LOC: C.EDB 16:24 → C.EDA 20:59
DX: N83.209 Unspecified ovarian cyst, unspecified side (principal); Z82.49 Family history of ischemic heart disease and other diseases of the circulatory system; F17.200 Nicotine dependence, unspecified, uncomplicated

== ENCOUNTER → 2017-12-18 | Outpatient (CLI) | payer OTHER ==
[~2017-12-18] MED LIST changes: +OXYC1TAB3 PO
[2017-12-18 17:01] LABS: BASO % 0.2 %; BASO ABS # 0.02 K/uL (0-0.2); EOS % 1.6 %; EOS ABS # 0.17 K/uL (0-0.5); HEMOGLOBIN 11.4 g/dL (12.0-16.0); IG# 0.07 K/uL (0.00-0.02); LYMPH % 16.4 %; MEAN CELL VOLUME 82.8 fL (80-100); MEAN CORPUSCULAR HEMOGLOBIN 26.2 pg (25-34); MEAN CORPUSCULAR HGB CONC 31.7 g/dl (32-36); MEAN PLATELET VOLUME 9.1 fL (7.4-10.4); MONO % 4.9 %; MONO ABS # 0.51 K/uL (0.11-0.59); NEUT % 76.2 %; NEUT ABS # 7.89 K/uL (1.4-6.5); PLATELET COUNT 358 K/uL (130-400); RED CELL DISTRIBUTION WIDTH CV 14.9 % (11.5-14.5); RED CELL DISTRIBUTION WIDTH SD 45.5 fL (36.4-46.3); WHITE BLOOD COUNT 10.36 K/uL (4.8-10.8)
[2017-12-18 17:32] LABS: ALBUMIN 3.9 gm/dl (3.4-5.0); ALT/SGPT 24 U/L (12-78); AST/SGOT 13 U/L (15-37); BLOOD UREA NITROGEN 12 mg/dl (7-18); CARBON DIOXIDE 30 mmol/L (21-32); CREATININE 0.63 mg/dl (0.60-1.20); GLUCOSE 96 mg/dl (70-99); POTASSIUM 3.5 mmol/L (3.5-5.1); SODIUM 135 mmol/L (136-145)
[2017-12-18 17:43] LABS: ALKALINE PHOSPHATASE 69 U/L (45-117); TOTAL PROTEIN 7.7 gm/dl (6.4-8.2)
[2017-12-20 13:47] LABS: MICROSOMAL AB 2 IU/ML (<9)
== END | disposition home or self-care (01) ==
LOC: C.LABPBG 15:51
PROVIDERS: ATTEND Family Medicine
DX: R10.9 Unspecified abdominal pain (principal); R59.1 Generalized enlarged lymph nodes; R53.83 Other fatigue; R63.5 Abnormal weight gain; R93.5 Abnormal findings on diagnostic imaging of other abdominal regions, including retroperitoneum; D64.9 Anemia, unspecified

== ENCOUNTER 2018-01-14 06:30 | Day surgery (SDC) | payer OTHER ==
[2017-12-31 07:21] VITALS: BMI 37.0
--- NOTE | 2018-01-02 13:55 | DIAGNOSTIC IMAGING REPORT ---
CHEST 2 VIEWS ROUTINE CLINICAL HISTORY: R10.9 Abdominal pain, right [id number] [id number] COMPARISON STUDY: 09/24/2010 FINDINGS: The bones soft tissues and hemidiaphragms are normal. The cardiomediastinal silhouette is normal. The lungs are clear. The pulmonary vasculature is normal. IMPRESSION: Negative chest. The above report was generated using voice recognition software. It may contain grammatical, syntax or spelling errors. Electronically signed by: Aaron Yao M.D. 01/02/2018 1:53 PM Dictated Date/Time: 01/02/2018 1:53 PM
[~2018-01-14] VITALS: Ht 162.6 cm; Wt 99.0 kg
[~2018-01-14 06:30] MED LIST changes: -ACET-1256 PO; +ASCA500 PO; +CYAN100020 PO; +ERGO500037 PO; +FRRS300 PO; +LACTATED RINGER'S 1000ML 1,000 ML IV SCH; -LORA-741 PO; -OXYC1TAB3 PO; +SERT-234 PO; -SERT50TA PO
[2018-01-14 06:53] VITALS: BP 119/84; PULSE 81; TEMP 36.8; O2SAT 95; Ht 162.6 cm; Wt 99.0 kg
[2018-01-14] MEDS ORDERED: FENTANYL CITRATE INJ 50 MCG/1 ML 2 ML VIAL ONE ×2 (06:58→08:01)
[2018-01-14] MEDS ORDERED: MIDAZOLAM HCL 1 MG/ML 2ML VIAL ONE (06:59)
--- NOTE | 2018-01-14 07:19 | History & Physical Bridge Note ---
H&P Re-Evaluation Bridge Note: I have examined the patient, reviewed the History & Physical and in the interval since the performance of the History & Physical I have noted the following changes of clinical significance: No changes noted pt marked, mother at bedside, all questions answered
[2018-01-14] MEDS ORDERED: BUPIVACAINE 0.5 % 5 MG/1 ML MPF 30ML VIAL ONE (08:13)
[2018-01-14] MEDS ORDERED: BACITRACIN 50000 UNIT VIAL ONE (08:14)
[2018-01-14] MEDS ORDERED: SCOPOLAMINE 1.5 MG TDSY TD ONE (08:17)
[2018-01-14] MEDS ORDERED: LIDOCAINE/EPINEPHRINE 1% 20 ML VIAL ONE (08:23)
[2018-01-14] MEDS ORDERED: EpHEDrine SULFATE INJ 50 MG/ML AMP IV PRN (09:00)
[2018-01-14] MEDS ORDERED: ONDANSETRON INJ 2 MG/ML 2 ML VIAL IV PRN ×2 (09:00→10:00)
[2018-01-14] MEDS ORDERED: ATROPINE SULFATE 0.1 MG/ML 5ML SYR IV PRN (09:00)
[2018-01-14] MEDS ORDERED: PROMETHAZINE HCL INJ 6.25 MG in SODIUM CHLORIDE 0.9% 50ML 50 ML IV PRN (09:00)
[2018-01-14] MEDS ORDERED: ROCURONIUM BROMIDE 10 MG/ML 5 ML VIAL ONE (09:11)
[2018-01-14] MEDS ORDERED: PROPOFOL IV EMULSION 10 MG/ML 20 ML VIAL ONE (09:11)
[2018-01-14] MEDS ORDERED: ONDANSETRON INJ 2 MG/ML 2 ML VIAL ONE (09:11)
[2018-01-14] MEDS ORDERED: CEFOXITIN SOD 1 GM VIAL ONE (09:11)
[2018-01-14] MEDS ORDERED: GLYCOPYRROLATE INJ 0.2 MG/ML VIAL ONE (09:11)
[2018-01-14] MEDS ORDERED: NEOSTIGMINE METHYLSULFATE 5 MG/5 ML SYR ONE (09:11)
[2018-01-14] MEDS ORDERED: LIDOCAINE HCL 2% 2 ML VIAL (20MG/ML) ONE (09:11)
[2018-01-14] MEDS ORDERED: DEXAMETHASONE SOD INJ 4 MG/ML VIAL ONE (09:11)
[2018-01-14] MEDS ORDERED: KETOROLAC TROMETHAMINE 30 MG/ML VIAL ONE (09:30)
--- NOTE | 2018-01-14 09:35 | [facility] Post Operative Brief Note ---
Immediate Operative Summary Operative Date January 14, 2018. Pre-Operative Diagnosis rlq AIN INCISIONAL HERNIA LEFT GROIN ADENOPATHY Post-Operative Diagnosis SAME Procedure(s) Performed LAPROSCOPIC LYSES OF ABD WALL ADHESION APPENDECOMY LEFT GROIN LYMPH NODE EXCISIONAL BIOPSY Surgeon CORNELIUS Lab Director Surgeon(s) Pepe MÉNDEZ Estimated Blood Loss 5CC Findings See Below PREOP INCARCERATED OOMENTUMD SUPRAPUBIC HERNIA Specimens APPENDIX AND LYMPH NODE
[2018-01-14] MEDS ORDERED: LACTATED RINGER'S 1000ML 1,000 ML IV SCH (09:47)
[2018-01-14] MEDS ORDERED: OXYC-57 PO (09:49)
--- NOTE | 2018-01-14 09:50 | Discharge Instructions ---
Discharge Instructions Date of Service January 14, 2018. Visit Reason for Visit: Abdominal Pain, Lymphadenopathy, Incisional Hernia Discharge Discharge Diagnosis / Problem: laparoscopic appendectomy, lymph node biopsy Discharge Goals Goal(s): Decrease discomfort Activity Recommendations Activity Limitations: as noted below Lifting Limitations: no more than 10 pounds Shower/Bathe: tomorrow Driving or Machine Use: resume 3 days after discharge Anesthesia . Post Anesthesia Instructions: If you have had General Anesthesia or IV Sedation: * Do not drive today. * Resume driving when surgeon permits. * Do not make important decisions or sign legal documents today. * Call surgeon for: 1. Temperature elevations greater than 101 degrees F. 2. Uncontrollable pain. 3. Excessive bleeding. 4. Persistent nausea and vomiting. 5. Medication intolerance (nausea, vomiting or rash). * For nausea and vomiting use only clear liquids such as: tea, soda, bouillon until nausea subsides, then gradually increase diet as tolerated. * If you have any concerns or questions, call your surgeon's office. If physician is unavailable and it is an emergency, call 911 or go to the nearest emergency room. . Instructions / Follow-Up Instructions / Follow-Up Dr. Martínez in 1 week, call [phone] if you do not already have an appt or have any questions Diet Recommendations Recommended Home Diet: no limitations Procedures Procedures Performed: LAPROSCOPIC LYSES OF ABD WALL ADHESION APPENDECOMY LEFT GROIN LYMPH NODE EXCISIONAL BIOPSY Pending Studies Studies pending at discharge: yes List of pending studies: pathology Medical Emergencies . Who to Call and When: Medical Emergencies: If at any time you feel your situation is an emergency, please call 911 immediately. . Non-Emergent Contact Non-Emergency issues call your: Surgeon Call Non-Emergent contact if: you have a fever, temperature is above 101.5, your pain is not controlled, wound has increased pain, you have any medication questions . . "Provider Documentation" section prepared by Robert Crystal. .
[2018-01-14] MEDS ORDERED: OXYCODONE/ACETAMINOPHEN 5-325 TAB PO PRN (10:00)
[2018-01-14] MEDS ORDERED: MoRPHine SULFATE 4 MG/ML 1 ML CARP\\VIAL IV PRN (10:00)
[2018-01-14] MEDS: FENTANYL CITRATE INJ 50 MCG/1 ML 2 ML VIAL IV PRN ×2 (10:11→10:16)
[2018-01-14 10:55] VITALS: BP 134/74; PULSE 84; TEMP 36.7; O2SAT 94
--- NOTE | 2018-01-14 10:56 | Anesthesiology Progress Note ---
Anesthesia Post Op Note Date & Time January 14, 2018 at 10:56 Vital Signs Pain Intensity: 4 Vital Signs Past 12 Hours Date Time Temp Pulse Resp B/P (MAP) Pulse Ox O2 Delivery O2 Flow Rate FiO2 01/14/18 10:50 36.3 85 16 134/89 98 Room Air 01/14/18 10:40 88 16 133/90 98 Room Air 01/14/18 10:30 94 16 132/87 97 Room Air 01/14/18 10:20 88 16 137/91 99 Room Air 01/14/18 10:10 81 16 128/87 100 Oxymask 5 01/14/18 10:00 78 16 131/83 100 Oxymask 5 01/14/18 09:50 36.0 76 16 135/88 100 Oxymask 10 01/14/18 06:53 36.8 81 22 119/84 (96) 95 Room Air Notes Mental Status: alert / awake / arousable, participated in evaluation Pt Amnestic to Procedure: Yes Nausea / Vomiting: adequately controlled Pain: adequately controlled Airway Patency, RR, SpO2: stable & adequate BP & HR: stable & adequate Hydration State: stable & adequate Anesthetic Complications: no major complications apparent
--- NOTE | 2018-01-14 11:24 | OPERATIVE REPORT ---
DATE OF OPERATION: 01/14/2018 SURGEON: Dr. Martínez. HUMAN PERFORMANCE TECHNOLOGIST: Robert Crystal PA-C. PREOPERATIVE DIAGNOSES: Right lower quadrant abdominal pain, incisional hernia, left groin lymphadenopathy. POSTOPERATIVE DIAGNOSES: Right lower quadrant abdominal pain, incisional hernia, left groin lymphadenopathy with incisional hernia from an omental adhesion through the suprapubic area. PROCEDURE: Laparoscopic lysis of adhesion, laparoscopic appendectomy, open excisional biopsy of left groin node. SUMMARY: The patient was brought into the operating room theater. The abdomen and left groin was prepped with Betadine scrubbing solution and properly draped. I made a small incision supraumbilically. Patient had an infraumbilical incision, probably from the entry side of her gallbladder surgery. We entered with a Veress needle followed by CO2 followed by a 5 mm trocar. Point of entry inspected and no injury identified. At this point, we were able to place the camera and had it up towards the abdominal wall lower limb. Patient had an omental adhesion stuck to the most suprapubic area probably and the small incisional hernia in the midline from her previous Pfannenstiel incision, . Also at this point to visualize right lower quadrant after we placed a 5 mm right upper quadrant port with preemptive local analgesia, we elevated the cecum. Appendix was long and slightly retrocecal, but appeared grossly normal. There was adhesion band for the cecal peritoneal area. The right ovary free of any pathology although we did take a picture of this. The abdominal wall hernia could be visualized. We were able to free some of this by cutting down the adhesion, but mostly would be done after we converted the umbilical port to 11 mm trocar and placed a 5 mm port to the left lower quadrant. We then were able to cut and free up the omental adhesion which was actually the incarcerated tissue in the hernia. I left part of the distal aspect of the omentum into the hernial sac which was small and I wanted to do that because I did not want a place any mesh in there and hopefully this will suffice some of her pain. At this point, a window was created in the mesoappendix, using the purple SUE, we fired off the appendix, the cecal fat which was grossly normal. Take another application to up the mesentery. There was a very small bleeder appreciated along the staple line that we cauterized with cautery at 25. The appendix was placed in an Endopouch, taken out intact through the epigastric port. Once this had been completed, we placed the 11 mm port back in. Checked hemostasis in the right lower quadrant appeared grossly satisfactory. No further bleeding. We similarly checked the hernial site which was a small hernia, probably about a cm and half in size which had some residual from that omentum that was incarcerated in there, but no free tosin opening were appreciated. At this point, individual trocars removed, lastly umbilical trocar, all fascial stitch of 0 Vicryl [id number] x2 for the umbilical area, Monocryl for the outlines. Small incision was made about an inch and a quarter long in the left groin area and deepened through subcutaneous tissue. She has a significant amount of fatty tissue but we were able to see a conglomerate lymph nodes that actually coming out inferior to the ligament. These were about a cm and a half in size. We were able then to divide the base with right angle clamps, taking off any lymphatic drainage and ligated with 2-0 silk. The lymph node was sent fresh to pathology. The wound was closed with 3-0 Dexon and Monocryl subcuticular. Steri-Strips applied. Procedure was tolerated well by the patient. Estimated blood loss approximately 5 mL. The patient was taken to recovery in good condition. I attest to the content of the Intraoperative Record and any orders documented therein. Any exception s are noted below.
[2018-01-14 11:25] VITALS: BP 121/74; PULSE 82; TEMP 36.7; O2SAT 95
[2018-01-14 11:50] VITALS: BP 130/75; PULSE 80; TEMP 36.9; O2SAT 94
== END 2018-01-14 12:08 | disposition home or self-care (01) ==
LOC: C.ACU 06:30
PROVIDERS: ATTEND Surgery
DX: K43.2 Incisional hernia without obstruction or gangrene (principal); R59.0 Localized enlarged lymph nodes; K56.51 Intestinal adhesions [bands], with partial obstruction; F41.9 Anxiety disorder, unspecified; E66.9 Obesity, unspecified; Z82.49 Family history of ischemic heart disease and other diseases of the circulatory system; Z81.8 Family history of other mental and behavioral disorders; Z83.79 Family history of other diseases of the digestive system; Z84.1 Family history of disorders of kidney and ureter; Z83.49 Family history of other endocrine, nutritional and metabolic diseases; Z87.891 Personal history of nicotine dependence